=== PATIENT | female | born 1985 | race Caucasian/White ===

== ENCOUNTER 2018-12-19 11:00 | Emergency (ER) | payer BC, MEDICAID ==
[~2018-12-19] VITALS: Wt 92.0 kg
[2018-12-19 11:07] VITALS: BP 160/84; PULSE 71; RESP 16
[2018-12-19] MEDS ORDERED: ONDANSETRON (ODT) 4 MG TAB ODT STA (12:40)
[2018-12-19] MEDS ORDERED: KETOROLAC 60 MG INJ IM STA (12:40)
[2018-12-19] MEDS ORDERED: HYDROCODONE/APAP (10/325) TAB PO ONE (13:00)
[2018-12-19] MEDS ORDERED: HYDR-4011 PO (14:06)
[2018-12-19] MEDS ORDERED: IBUP-1542 PO (14:06)
--- NOTE | 2018-12-19 14:12 | ERD ---
ER Documentation Chief Complaint Chief Complaint lower back pain after lifting something last night. worse this am HPI 33-year-old female presents with low back pain after lifting yesterday. She denies bowel or bladder incontinence, weakness, fevers.. It radiates down her right buttock. Patient denies previous back problems. Pain described as 9 out of 10, sharp, rating to right buttock. Worse with movement decreased with rest. ROS All systems reviewed and are negative except as per history of present illness. Medications Home Meds Active Scripts Ibuprofen* (Motrin*) 600 Mg Tab, 600 MG PO Q6, #20 TAB Prov:MARIANA FUENTES MD 12/19/18 Hydrocodone/Acetaminophen (Hob[place] 5-325 Tablet) 1 Each Tablet, 1 TAB PO Q6H PRN for PAIN, #10 TAB Prov:MARIANA FUENTES MD 12/19/18 PMhx/Soc Medical and Surgical Hx: pt denies Medical Hx, pt denies Surgical Hx Hx Alcohol Use: No Hx Substance Use: No Hx Tobacco Use: No Smoking Status: Never smoker FmHx Family History: No diabetes, No coronary disease, No other Physical Exam Vitals Vital Signs Date Temp Pulse Resp B/P (MAP) Pulse Ox O2 O2 Flow FiO2 Time Delivery Rate 12/19/18 98.0 71 16 160/84 99 11:07 (109) Physical Exam Const: No acute distress Head: Atraumatic Eyes: Normal Conjunctiva ENT: Normal External Ears, Nose and Mouth. Neck: Full range of motion. No meningismus. Resp: Clear to auscultation bilaterally Cardio: Regular rate and rhythm, no murmurs Abd: Soft, non tender, non distended. Normal bowel sounds Skin: No petechiae or rashes Back: No midline or flank tenderness. Tender diffusely right L4-L5 with mildly positive straight leg raise. No deficits. Ext: No cyanosis, or edema Neur: Awake and alert Psych: Normal Mood and Affect Results 24 hrs Laboratory Tests Test 12/19/18 13:06 12/19/18 13:08 POC Beta HCG, Qualitative NEGATIVE Bedside Urine pH (LAB) 7.0 Bedside Urine Protein (LAB) 1+ Bedside Urine Glucose (UA) Negative Bedside Urine Ketones (LAB) Negative Bedside Urine Blood Trace-intact Bedside Urine Nitrite (LAB) Negative Bedside Urine Leukocyte Esterase (L 2+ Current Medications Medications Dose Sig/Juju Start Time Status Last (Trade) Ordered Route PRN Stop Time Admin Dose Reason Admin 1 tab ONCE ONCE 12/19/18 DC 12/19/18 Acetaminophen PO 13:00 12:56 / 12/19/18 13:01 Hydrocodone Bitart (H[place] ()) Ondansetron 8 mg ONCE STAT 12/19/18 DC 12/19/18 HCl (Zofran ODT 12:40 12:56 Odt) 12/19/18 12:42 Ketorolac 60 mg ONCE STAT 12/19/18 DC 12/19/18 Tromethamine IM 12:40 13:16 (Toradol) 12/19/18 12:42 Procedures/MDM Patient presents with low back pain after lifting yesterday. She did feel a pop when she has radiation down her right lower extremity. Given no previous history of back problems radiographic studies were obtained. X-ray LS-Spine 3V Interpreted by me: Bones: No fracture, or lytic lesions Joints: No dislocation Foreign body: None. Impression-normal lumbar spine x-ray with scoliosis without acute findings however. Given Toradol 60 milligrams IM and [place] 10 mg by mouth as well as Zofran. Patient presents with signs and symptoms of acute lumbar strain without signs of fracture, dislocation, epidural abscess, infection, ischemia, cauda equina syndrome, additional concerning signs or symptoms. She will be treated with instructions for back exercises less than 5-day supply of [place], ibuprofen, primary care follow-up and return precautions. The patient was stable with no new complaints during the ER course. Clinically, there is no current evidence to suggest meningitis, sepsis, acute abdomen, pneumonia, stroke, acute coronary syndrome, pulmonary embolism, aortic dissection or any other emergent condition appearing to require further evaluation or hospitalization. Patient counseled regarding my diagnostic impression and care plan. Prior to discharge all questions answered. Pt agrees with treatment plan and understands strict return precautions. Pt is instructed to follow up with primary care provider within 24- 48 hours. Precautionary instructions provided including instructions to return to the ER if not improving or for any worsening or changing symptoms or concerns. Departure Diagnosis: Primary Impression: Injury of back Encounter type: initial encounter Qualified Codes: S39.92XA - Unspecified injury of lower back, initial encounter Condition: Stable Patient Instructions: Back Exercises, Lumbar, Back Sprain/Strain Referrals: NO PRIMARY,CARE PHYSICIAN (PCP) Additional Instructions: X-rays read as normal without acute findings. Recommend exercises at home. See primary doctor for further evaluation treatment for persistent pain. Recheck for fevers, new or worsening symptoms. MARIANA FUENTES MD Dec 19, 2018 14:12
== END 2018-12-19 14:19 | disposition home or self-care (01) ==
LOC: FTE 11:00
DX: S39.92XA Unspecified injury of lower back, initial encounter (principal); X50.0XXA Overexertion from strenuous movement or load, initial encounter; Y92.9 Unspecified place or not applicable
CPT/HCPCS: 72100; 81003; 81025; 96372; 99284; J1885; Z7610